=== PATIENT | female | born 1995 | race Asian ===

== ENCOUNTER 2016-11-21 17:36 | Emergency (ER) | payer OTHER ==
[~2016-11-21] VITALS: Ht 157.5 cm; Wt 56.7 kg
[2016-11-21 17:40] VITALS: BP 140/95; PULSE 99; RESP 16; TEMP 98.2; O2SAT 100
--- NOTE | 2016-11-21 17:40 | NUR ---
Patient to ER bed 8 to gown for evaluation. Side rails up. Report given to Jenna SMITH.
--- NOTE | 2016-11-21 17:45 | NUR ---
Pt brought by partner, A&O x4, pt states she had concusion 2 or 3 days ago, c/o hedache, back pain, dizziness and nausea, skin pink and warm, cap refill <3, VSS.
--- NOTE | 2016-11-21 17:48 | NUR ---
Shaista Lobato TEST CONDUCTOR at bedside examining patient
[2016-11-21] MEDS ORDERED: KETOROLAC TROMETHAMINE 60 MG/2 ML VIAL IM ONE (18:45)
[2016-11-21 19:00] VITALS: BP 138/95; PULSE 99; RESP 16; TEMP 98.2; O2SAT 100
--- NOTE | 2016-11-21 19:00 | NUR ---
Patient given written and verbal discharge instructions and verbalizes understanding. ER MD discussed with patient the results and treatment provided. Given copies of tests performed in ER. Patient in stable condition. ID arm band removed. Rx of Motrin and Zofran given. Patient educated on pain management and to follow up with PMD. Pain Scale 0/10. Opportunity for questions provided and answered.
== END 2016-11-21 19:00 | disposition home or self-care (01) ==
LOC: SED 17:36
DX: S09.90XA Unspecified injury of head, initial encounter (principal); W51.XXXA Accidental striking against or bumped into by another person, initial encounter; Y93.67 Activity, basketball; Y99.8 Other external cause status; Y92.89 Other specified places as the place of occurrence of the external cause
CPT/HCPCS: 81025; 96372; 99283; J1885